=== PATIENT | male | born 1965 | race African-American/Black ===

== ENCOUNTER 2022-11-04 16:02 | Emergency (ER) | payer SELFPAY ==
--- NOTE | ~2022-11-04 | XR_ITS ---
EXAMINATION: XR CHEST CLINICAL INFORMATION: Wheezing COMPARISON: None available. TECHNIQUE: 2 views of the chest were obtained. FINDINGS: The lungs are well expanded. There is no focal consolidation, edema, or effusion. Mild bronchial wall thickening. No pneumothorax. The cardiomediastinal silhouette is within normal limits. No acute osseous abnormality. DISH. XR/XR chest 2V IMPRESSION: No consolidation. Bronchial wall thickening can be seen with a small airways process such as asthma or atypical/viral infection.
[2022-11-04 16:39] VITALS: BP 175/82; PULSE 60; RESP 20; TEMP 36.3; O2SAT 94; BMI 48.4
--- NOTE | 2022-11-04 16:39 | ED.GENADULT ---
HPI - General Adult General Chief complaint: Dizziness Stated complaint: Not feeling well Related Data Allergies Allergy/AdvReac Type Severity Reaction Status Date / Time No Known Allergies Allergy Verified 11/04/22 16:38 COUNT INCLUDES THE [facility] Social History Social History Advance Directives: No Advance Directives Information Provided: No Physical Exam ED Vital Signs: Vital Signs - 24 hr 11/04/22 16:39 11/04/22 18:29 Temperature 97.4 F Pulse Rate 60 60 Respiratory Rate 20 18 Blood Pressure 175/82 162/91 H Pulse Oximetry 94 98 Oxygen Delivery Method Room Air Room Air BMI result Body Mass Index 48.4 Course Course Course Narrative: RME - 57 y/o transgender male to female with history of PE on Coumadin, urinary incontinence, HTN, DM2, HLD, depression who presenting to the ER for evaluation of dizziness, fatigue for the last 1 week. She is wondering if INR is off, has not had it checked in a month. Feels intermittent wheezing. No SOB or SALCEDO or chest pain. Plan: EKG, lab workup Reevaluation(s) Reevaluation #1: patient eloped from the ER prior to full evaluation and treatment Medical Decision Making Lab Data 11/04/22 17:13 11/04/22 17:13 Labs: Lab Results 11/04/22 11/04/22 11/04/22 Range/Units 17:13 17:13 17:13 WBC 5.5 (4.8-10.8) X10*3/uL RBC 3.48 L (4.60-5.80) X10*6/uL Hgb 9.9 L (14.0-18.0) g/dl Hct 31.3 L (42.0-52.0) % MCV 89.9 (80.0-98.0) fL MCH 28.4 (27.0-33.0) pg MCHC 31.6 (31.0-36.0) g/dl RDW 13.6 (11.0-16.0) % Plt Count 237 (160-400) X10*3/uL MPV 10.3 (9.4-12.4) fL Immature Gran % (Auto) 0.2 (0.0-0.4) % Neut % (Auto) 60.9 (45-73) % Lymph % (Auto) 27.6 (20-40) % O'Brien % (Auto) 5.6 (2-11) % Eos % (Auto) 5.5 H (0-4) % Baso % (Auto) 0.2 (0-2) % Lymph # (Auto) 1.5 (1.2-4.9) X10*3/uL O'Brien # (Auto) 0.3 (0.1-1.2) X10*3/uL Eos # (Auto) 0.3 (0.0-0.4) X10*3/uL Baso # (Auto) 0.0 (0.0-0.2) X10*3/uL Abs Immat Gran (auto) 0.01 (0.00-0.03) X10*3/uL Absolute Neuts (auto) 3.4 (2.0-8.3) x10*3/uL Absolute Nucleated RBC 0.000 (0.0-0.012) X10*3/uL Nucleated RBC % (auto) 0.0 (0.0-0.2) /100WBC PT 21.8 H (11.1-13.3) SEC INR 1.8 H (0.9-1.1) APTT 32.3 (26.0-36.4) SEC Sodium 141 (135-145) mmol/L Potassium 4.5 (3.3-5.1) mmol/L Chloride 112 H (96-108) mmol/L Carbon Dioxide 20 L (22-29) mmol/L Anion Gap 14 (12-20) BUN 50 H (9-16) mg/dL Creatinine 4.19 H* (0.5-1.4) mg/dL Estim Creat Clear Calc 32.7 Estimated GFR 15 Random Glucose 103 (60-115) mg/dL Calcium 9.5 (8.4-10.2) mg/dL Magnesium 2.0 (1.6-2.6) mg/dL Total Bilirubin 0.3 (0.0-1.0) mg/dL Direct Bilirubin 0.1 (0.0-0.5) mg/dL AST 17 (5-37) U/L ALT 18 (0-40) U/L Alkaline Phosphatase 128 H (39-117) U/L B-Natriuretic Peptide (<100) pg/mL Total Protein 7.5 (6.5-8.0) g/dL Albumin 3.5 (3.5-5.0) g/dL 11/04/22 Range/Units 17:13 WBC (4.8-10.8) X10*3/uL RBC (4.60-5.80) X10*6/uL Hgb (14.0-18.0) g/dl Hct (42.0-52.0) % MCV (80.0-98.0) fL MCH (27.0-33.0) pg MCHC (31.0-36.0) g/dl RDW (11.0-16.0) % Plt Count (160-400) X10*3/uL MPV (9.4-12.4) fL Immature Gran % (Auto) (0.0-0.4) % Neut % (Auto) (45-73) % Lymph % (Auto) (20-40) % O'Brien % (Auto) (2-11) % Eos % (Auto) (0-4) % Baso % (Auto) (0-2) % Lymph # (Auto) (1.2-4.9) X10*3/uL O'Brien # (Auto) (0.1-1.2) X10*3/uL Eos # (Auto) (0.0-0.4) X10*3/uL Baso # (Auto) (0.0-0.2) X10*3/uL Abs Immat Gran (auto) (0.00-0.03) X10*3/uL Absolute Neuts (auto) (2.0-8.3) x10*3/uL Absolute Nucleated RBC (0.0-0.012) X10*3/uL Nucleated RBC % (auto) (0.0-0.2) /100WBC PT (11.1-13.3) SEC INR (0.9-1.1) APTT (26.0-36.4) SEC Sodium (135-145) mmol/L Potassium (3.3-5.1) mmol/L Chloride (96-108) mmol/L Carbon Dioxide (22-29) mmol/L Anion Gap (12-20) BUN (9-16) mg/dL Creatinine (0.5-1.4) mg/dL Estim Creat Clear Calc Estimated GFR Random Glucose (60-115) mg/dL Calcium (8.4-10.2) mg/dL Magnesium (1.6-2.6) mg/dL Total Bilirubin (0.0-1.0) mg/dL Direct Bilirubin (0.0-0.5) mg/dL AST (5-37) U/L ALT (0-40) U/L Alkaline Phosphatase (39-117) U/L B-Natriuretic Peptide 112 H (<100) pg/mL Total Protein (6.5-8.0) g/dL Albumin (3.5-5.0) g/dL Discharge Plan Discharge Clinical Impression: Dizziness Patient Disposition: Elopement Interventions: ED Discharge Assessment Last Done: 11/04/22 18:48 Discharge Date/Time: 11/04/22 18:48
--- NOTE | 2022-11-04 16:43 | ECG_ITS ---
Test Reason : DIZZINESS Blood Pressure : / mmHG Vent. Rate : 054 BPM Atrial Rate : 054 BPM P-R Int : 188 ms QRS Dur : 090 ms QT Int : 414 ms P-R-T Axes : 032 029 030 degrees QTc Int : 392 ms Sinus bradycardia Otherwise normal ECG No previous ECGs available Referred By: Mitra Clark Electronically Signed By:Jose Warren
[2022-11-04 17:26] LABS: MANUAL DIFF FLAG NO
[2022-11-04 17:38] LABS: Basophils Percent Auto 0.2 % (0-2); Eosinophils Absolute Auto 0.3 X10*3/uL (0.0-0.4); Eosinophils Percent Auto 5.5 % (0-4); Hematocrit 31.3 % (42.0-52.0); Hemoglobin 9.9 g/dl (14.0-18.0); Imm Gran Abs Auto 0.01 X10*3/uL (0.00-0.03); Imm Gran Pct Auto 0.2 % (0.0-0.4); Lymphocytes Absolute Auto 1.5 X10*3/uL (1.2-4.9); Lymphocytes Percent Auto 27.6 % (20-40); Mean Corpuscular HGB Conc 31.6 g/dl (31.0-36.0); Mean Corpuscular Hemoglobin 28.4 pg (27.0-33.0); Mean Corpuscular Volume 89.9 fL (80.0-98.0); Mean Platelet Volume 10.3 fL (9.4-12.4); Monocytes Absolute Auto 0.3 X10*3/uL (0.1-1.2); Monocytes Percent Auto 5.6 % (2-11); Neutrophils Absolute Auto 3.4 x10*3/uL (2.0-8.3); Neutrophils Percent Auto 60.9 % (45-73); Platelet Count 237 X10*3/uL (160-400); Red Blood Count 3.48 X10*6/uL (4.60-5.80); Red Cell Distribution Width 13.6 % (11.0-16.0); White Blood Count 5.5 X10*3/uL (4.8-10.8)
[2022-11-04 17:39] LABS: INTERNATIONAL NORM RATIO 1.8 (0.9-1.1); Prothrombin Time 21.8 SEC (11.1-13.3)
[2022-11-04 17:41] LABS: Partial Thromboplastin Time 32.3 SEC (26.0-36.4)
[2022-11-04 17:51] LABS: B Type Natriuretic Peptide 112 pg/mL (<100)
[2022-11-04 17:54] LABS: Alanine Aminotransferase 18 U/L (0-40); Albumin Level 3.5 g/dL (3.5-5.0); Alkaline Phosphatase 128 U/L (39-117); Anion Gap 14 (12-20); Aspartate Amino Transferase 17 U/L (5-37); Bilirubin Direct 0.1 mg/dL (0.0-0.5); Bilirubin Total 0.3 mg/dL (0.0-1.0); Blood Urea Nitrogen 50 mg/dL (9-16); Calcium 9.5 mg/dL (8.4-10.2); Carbon Dioxide 20 mmol/L (22-29); Chloride 112 mmol/L (96-108); Creatinine Clr Calc Pharmacy 32.7; Estimated Glomerular Filt Rate 15; Glucose Random 103 mg/dL (60-115); Potassium 4.5 mmol/L (3.3-5.1); Sodium 141 mmol/L (135-145); Total Protein 7.5 g/dL (6.5-8.0)
[2022-11-04 18:29] VITALS: BP 162/91; PULSE 60; RESP 18; O2SAT 98
== END 2022-11-04 18:48 | disposition left against medical advice (07) ==
PROVIDERS: Physician Assistant; Emergency Provider Emergency Medicine
DX: R42 Dizziness and giddiness (principal); R00.1 Bradycardia, unspecified; R06.02 Shortness of breath; Z79.899 Other long term (current) drug therapy
CPT/HCPCS: 36415; 71046; 80048; 80076; 83735; 83880; 85025; 85610; 85730; 93005; 99283

== ENCOUNTER → 2022-11-04 16:43 | Outpatient (BNV) | payer OTHER, SELFPAY | PROVIDERS: Emergency Provider Emergency Medicine; Visit Provider Internal Medicine Cardiovascular Disease | DX: R00.1 Bradycardia, unspecified (principal) | CPT/HCPCS: 93010 ==

== ENCOUNTER 2022-11-19 10:17 | Outpatient (AMB) | payer OTHER, SELFPAY ==
[2022-11-19 10:30] VITALS: BP 112/74; PULSE 78; O2SAT 98; BMI 48.1
--- NOTE | 2022-11-19 10:30 | AM.OFFWIN_ITS ---
Intake Vital Signs 11/19/22 10:30 Height 6 ft 2 in Weight 170.097 kg BMI 48.1 Intake Visit Reasons: EP, INR Intake Note: Patient here to check INR. Patient Tobacco Use Status: Never used Tobacco Allergies No Known Allergies Allergy (Verified 11/19/22 10:31) Do you need a note to return to daycare/school/sports/work: No HPI HPI Comments History of Present Illness Details 57-year-old male to female transgender presents requesting PT INR, was unable to get to [facility], requesting blood test. No medical complaints at this time. Denies fevers, chills, chest pain, shortness of breath, nausea, vomiting. Physical exam benign Plan will check INR level call patient with results. Review of Systems Const Details: Constitutional : No Weight loss, No Fever, No Chills, No Fatigue, No Malaise ENT/Mouth : No sore throat, No Rhinorrhea Eyes: No Eye Pain, No Swelling, No Redness Cardiovascular : No Chest Pain, No SOB, No Dyspnea on Exertion, No Orthopnea, No Edema, No Palpitations Respiratory : No Cough, No Sputum, No Wheezing Gastrointestinal : No Nausea, No Vomiting, No Diarrhea, No Constipation, No abdominal Pain, No Hematochezia, No Melena Genitourinary : No Dysuria, No Urinary Frequency, No Hematuria, Musculoskeletal : No joint pain, No Myalgias, No Joint Swelling Skin : No Skin Lesions, No rash Neuro : No Weakness, No Numbness, No Dizziness, No Headache All systems reviewed & are unremarkable except as noted in HPI and below Physical Exam Vital Signs: BMI result Body Mass Index 48.1 vss Appearance: Alert.? Oriented X3.? No acute distress.? Head: Normocephalic, atraumatic, no step-offs or deformities Eyes: Pupils equal, round and reactive to light.? ENT: Pharynx normal.? Neck: Normal inspection.? Neck supple.? CVS: Normal heart rate and rhythm.? Pulses normal.? Respiratory: No respiratory distress.? Breath sounds normal.? Abdomen: Soft and nontender.? Skin: Skin warm and dry.? Normal skin color.? Normal skin turgor.? Extremities: No lower extremity edema.? No calf ttp. 5/5 strength to bilateral upper and lower extremities Back: No midline tenderness, no C-spine tenderness, full range of motion, no CVA tenderness bilaterally Neuro: Oriented X 3.? No motor deficit.? No sensory deficit. 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 If you were prescribed antibiotics today, it is important that you take your medication to their entirety, do not skip any doses, do not finish them early. Follow-up with your primary care provider this week. Return to the emergency department with new or worsening symptoms. Such as fevers, chills, chest pain, shortness of breath, nausea, vomiting, dizziness, headache, vision changes, lethargy In case of emergency call 911 Orders: Orders Prothrombin Time INR Today Z79.01 - longterm (current) use of anticoagulants Coding Level of Care Code Est Pt Level 3 (37606) Diagnoses terminal makeup operator (current) use of anticoagulants Z79.01
== END 2022-11-19 11:21 | disposition home or self-care (01) ==
PROVIDERS: Visit Provider Physician Assistant
DX: Z79.01 Long term (current) use of anticoagulants (principal)
CPT/HCPCS: 99213

== ENCOUNTER 2022-11-19 10:36 | Outpatient (REF) | payer OTHER, SELFPAY ==
[2022-11-19 14:03] LABS: INTERNATIONAL NORM RATIO 1.5
== END 2022-11-19 10:37 | disposition home or self-care (01) ==
LOC: HO.HMGCLDS 10:36
PROVIDERS: Visit Provider Physician Assistant
DX: Z79.01 Long term (current) use of anticoagulants (principal)
CPT/HCPCS: 36415; 85610

== ENCOUNTER 2023-01-21 08:52 | Outpatient (AMB) | payer OTHER, SELFPAY ==
[2023-01-21 08:56] VITALS: BP 160/90; PULSE 68; O2SAT 99; BMI 33.8
--- NOTE | 2023-01-21 08:56 | MHC.PC.OV ---
Vital Signs 01/21/23 08:56 Height 6 ft 2 in Weight 263 lb BMI 33.8 BP 160/90 Blood Pressure Location Lt brachial Position Sitting Pulse 68 Pulse Source Pulse Oximeter Pulse Oximetry (%) 99 Oxygen Delivery Method Room Air Intake Visit Reasons: New patient-patient on warfarin Intake Note: Patient is a new patient here to establish care [employer]ision [employer] Bench Required: No Allergies No Known Allergies Allergy (Verified 01/21/23 09:11) Medication List - Last Reconciled 01/21/23 by SUE Vernon albuterol sulfate 90 mcg/actuation (Ventolin HFA) 1 puff inhalation QID PRN amlodipine 10 mg PO DAILY atorvastatin 40 mg PO DAILY metoprolol succinate ER 50 mg PO DAILY omeprazole 20 mg PO DAILY sertraline 100 mg PO DAILY warfarin 5 mg PO DAILY Tobacco use date assessed: 01/21/23 Dental Screening Dental Screen Date: 01/21/23 Did you have a dental visit in the last 12 months?: No Did you have a dental problem in the last 6 months where you did not have access to dental care?: No HPI HPI Comments History of Present Illness Details 57-year-old Non Binary patient (gender at male) Past medical history significant for hyperlipidemia, hypertension, GERD, depression,anxiety, type 2 DM, pulmonary embolism on senior care anticoagulation therapy with warfarin. Patient reports has not had INR checked in 1 month, previously followed by [facility] Coumadin clinic will enter new referral. Patient reports currently follows with [facility] with a therapist weekly. Refill sent on all prescriptions. Flu Shot given in office today [facility] Medical History (Updated 01/21/23 @ 09:41 by SUE Vernon) Pulmonary embolism Family History (Updated 01/21/23 @ 09:19 by SUE Vernon) Mother No problems noted. Father Kidney disease Social History (Updated 01/21/23 @ 09:19 by SUE Vernon) Alcohol intake: current Alcohol intake frequency: holidays/special occasions only Patient Tobacco Use Status: Never used Tobacco service: No Cognitive needs: No Hearing needs: No Vision needs: No Questionnaire PHQ-9 Over the last 2 weeks, how often have you been bothered by any of the following problems? 1. Little interest or pleasure in doing things: nearly every day 2. Feeling down, depressed, or hopeless: nearly every day 3. Trouble falling or staying asleep, or sleeping too much: nearly every day 4. Feeling tired or having little energy: more than half the days 5. Poor appetite or overeating: more than half the days 6. Feeling bad about yourself - or that you are a failure or have let yourself or your family down: nearly every day 7. Trouble concentrating on things, such as reading the newspaper or watching television: nearly every day 8. Moving or speaking so slowly that other people could have noticed. Or the opposite - being so fidgety or restless that you have been moving around a lot more than usual: not at all 9. Thoughts that you would be better off or of hurting yourself in some way: not at all (pt chose not to answer ) Total score: 19 Depression Screening Interpretation: Positive Depression Screening Follow-up: In treatment Depression Screening Done: Yes 66137 - PHQ-9 Billing: Yes Source: Developed by Drs. Fracisco Stubbs, Christiane Coreas, Keith Borrego and colleagues, with an educational janay from [employer]. Thrive Questionnaire Date Thrive assessed: 01/21/23 I am a: Patient What is your living situation today?: I have a steady place to live Within the past 12 months, did the food you bought not last and you didn't have the money to get more?: Never true Within the past 12 months, did you worry whether your food would run out before you got money to buy more?: Never true Do you have trouble paying for medicines?: No Do you have trouble getting transportation to medical appointments?: No Do you have trouble paying your heating and electricity bill?: No Do you have trouble taking care of your child, family member or friend?: No Do you have trouble with day-to-day activities such as bathing, preparing meals, shopping, managing finances, etc.?: No Are you currently unemployed and looking for a job?: No Are you interested in more education?: No AUDIT C Alcohol Use Questionnaire (AUDIT-C) 1. How often do you have a drink containing alcohol?: Never 3. How often do you have six or more drinks on one occasion?: Never Total Score: 0 HAYDER-7 AMB Questionnaire HAYDER-7 Date HAYDER - 7 assessed: 01/21/23 Feeling nervous, anxious, or on edge: 3 = Nearly every day Not being able to stop or control worryin = Nearly every day Worrying too much about different things: 3 = Nearly every day Trouble relaxin = Nearly every day Being so restless that it is hard to sit still: 0 = Not at all Becoming easily annoyed or irritable: 3 = Nearly every day Feeling afraid as if something awful might happen: 0 = Not at all Total HAYDER-7 score (0-4 normal; 5-9 mild; 10-14 moderate; 15-21 severe): 15 Source: Developed by Drs. Fracisoc Stubbs, Christiane Coreas, Keith Borrego and colleagues, with an educational janay from [employer]. HAYDER-7 Assessment Billing HAYDER-7 Assessment Tool: HAYDER-7 Assessment 98139 Review of Systems Const Denies chills, Denies fatigue, Denies fever(s) and Denies poor appetite Eyes Denies no additional complaints ENT Reports Normal hearing present Card Denies chest pain, Denies syncope, Denies rapid heart rate and Denies dyspnea Resp Denies cough and Denies dyspnea GI Denies change in stool character, Denies constipation, Denies diarrhea, Denies nausea and Denies vomiting Denies dysuria, Denies urinary frequency and Denies urinary urgency Denies urinary frequency, Denies dysuria and Denies urinary urgency Neuro Reports Normal hearing present, Denies confusion and Denies syncope Psych Denies confusion Endo Denies fatigue Physical exam (Primary Care) Vital Signs: Last Vital Signs Pulse 68 01/21/23 08:56 BP 160/90 01/21/23 08:56 Pulse Ox 99 01/21/23 08:56 Oxygen Delivery Method Room Air 01/21/23 08:56 BMI result Body Mass Index 33.8 Tobacco/Smoking Status: Tobacco use Status Tobacco use date assessed 01/21/23 01/21/23 09:06 Patient Tobacco Use Status Never used Tobacco 01/21/23 09:19 PHQ-9: PHQ-9 Score PHQ-9: Total score 19 01/21/23 09:21 Depression Screening Interpretation: Positive Depression Screening Follow-up: In treatment Thrive Assessment: Date of Thrive Assessment Date Thrive assessed 01/21/23 01/21/23 09:06 Const General: No confusion Orientation/consciousness: No confusion HENMT Head: Yes normocephalic and Yes atraumatic Eyes Conjunctivae: conjunctivae normal Chest Chest palpation & inspection: normal inspection of the chest Resp Effort & Inspection: normal respiratory effort Auscultation: clear to auscultation bilaterally, no crackles, no rhonchi and no wheezes Cardio Rate: regular rate Rhythm: regular rhythm Heart sounds: S1 normal heart sound present and S2 normal heart sound present GI Inspection: Yes normal to inspection Neuro General: No confusion Cranial nerves: Yes Normal hearing present Extrem General: No edema Office Procedures Flu Questionnaire Does the patient have a severe egg allergy?: No Does the patient have severe life threatening allergies?: No Does the patient have a fever or illness today?: No Has the patient ever had Guillain-Mumford Syndrome?: No Has the patient ever had any past reaction to a flu shot?: No Immunizations flu vacc [id number] 6mos up(PF) 60 mcg(15 mcgx4)/0.5 mL IM syringe Performing Provider: SUE Vernon Performing Location: [facility] Administered by: МАРИНА Hinojosa on 01/21/23 09:12 Dose Route Admin Location Dispensed Lot Number Expiration Date NDC 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 They state that hemoglobin A1c is generally are good with following diabetic diet. Hemoglobin A1c ordered. (2) Depression: Code(s): F32.A - Depression, unspecified Plan: Patient currently follows with [facility], stable on sertraline 100 mg daily. (3) Anxiety: Code(s): F41.9 - Anxiety disorder, unspecified Plan: Patient currently follows with [facility], stable on sertraline 100 mg daily. (4) GERD (gastroesophageal reflux disease): Code(s): K21.9 - Gastro-esophageal reflux disease without esophagitis Plan: Continue on omeprazole. Avoid the foods that cause that, usually spicy foods, tomato products, juices, coffee, soda and foods that you're sensitive to.? After eating do not lie down, allow 3-4 hours before lying down. And keep the head of the bed above 30 degrees to avoid the acid from going up. (5) Hyperlipidemia: Code(s): E78.5 - Hyperlipidemia, unspecified Plan: Continue on atorvastatin 40 mg daily. Avoid fried foods, chicken skin, eggs, butter,margarine, pastries and?? red meat. Fasting lipid panel ordered. (6) Hypertension: Code(s): I10 - Essential (primary) hypertension Plan: Continue on amlodipine 10 mg daily and metoprolol succinate ER 50 mg. Follow low-salt. (7) Pulmonary embolism: Comment: 2019 Code(s): I26.99 - Other pulmonary embolism without acute cor pulmonale Plan Follow-up in 3 months for physical exam. Orders: Orders Comprehensive Animas. Panel Fast Today E11.9 - Type 2 diabetes mellitus without complications Lipid Panel Today Z13.220 - Encounter for screening for lipoid disorders PSA,Total (Free>4and<10) Today Z12.5 - Encounter for screening for malignant neoplasm of prostate Influenza [id number] Immunization Today Z23 - Encounter for immunization Complete Blood Count Auto Diff Today Z13.0 - Encounter for screening for diseases of the blood and blood-forming organs and certain disorders involving the immune mechanism Prothrombin Time INR Today Z79.01 - [facility] (current) use of anticoagulants Hemoglobin A1c Today E11.9 - Type 2 diabetes mellitus without complications Referrals Anticoagulation Service/Clinic I26.99 - Other pulmonary embolism without acute cor pulmonale Medications: New amlodipine 10 mg PO DAILY 30 tabs 3RF metoprolol succinate ER 50 mg PO DAILY 30 tabs 3RF omeprazole 20 mg PO DAILY 30 caps 3RF warfarin 5 mg PO DAILY 30 tabs 3RF diclofenac sodium 1% (Arthritis Pain (diclofenac)) apply to single elbow, wrist or hand; for hand includes palm/fingers/back of hand 2 grams topical QID 100 grams 0RF sertraline 100 mg PO DAILY 30 tabs 3RF Coding Level of Care Code New Pt Level 4 (95152) Diagnoses Type 2 diabetes mellitus E11.9 Depression F32.A Anxiety F41.9 GERD (gastroesophageal reflux disease) K21.9 Hyperlipidemia E78.5 Hypertension I10 Pulmonary embolism I26.99 Additional Codes HAYDER-7 Assessment Billing - HAYDER-7 Assessment Tool: HAYDER-7 Assessment 87324 ([id number])
== END 2023-01-21 09:28 | disposition home or self-care (01) ==
LOC: HO.HMGH 08:52
PROVIDERS: PCP Nurse Practitioner Family; Visit Provider Nurse Practitioner Family
DX: Z23 Encounter for immunization (principal); E11.9 Type 2 diabetes mellitus without complications; F33.9 Major depressive disorder, recurrent, unspecified; I26.99 Other pulmonary embolism without acute cor pulmonale
CPT/HCPCS: 90471; 90686; 96127; 99204

== ENCOUNTER 2023-01-21 09:40 | Outpatient (REF) | payer OTHER, SELFPAY ==
[2023-01-21 09:54] LABS: MANUAL DIFF FLAG NO
[2023-01-21 10:55] LABS: Basophils Percent Auto 0.3 %; Eosinophils Absolute Auto 0.2 X10*3/uL; Eosinophils Percent Auto 2.8 %; Hemoglobin 10.3 g/dl; Imm Gran Abs Auto 0.01 X10*3/uL (0.00-0.03); Imm Gran Pct Auto 0.2 % (0.0-0.4); Lymphocytes Absolute Auto 2.4 X10*3/uL; Lymphocytes Percent Auto 39.5 %; Mean Corpuscular HGB Conc 31.2 g/dl; Mean Corpuscular Hemoglobin 28.9 pg; Mean Corpuscular Volume 92.4 fL; Mean Platelet Volume 10.5 fL (9.4-12.4); Monocytes Absolute Auto 0.4 X10*3/uL; Monocytes Percent Auto 6.1 %; Neutrophils Absolute Auto 3.1 x10*3/uL; Neutrophils Percent Auto 51.1 %; Platelet Count 296 X10*3/uL; Red Blood Count 3.57 X10*6/uL; Red Cell Distribution Width 13.9 % (11.0-16.0)
[2023-01-21 11:01] LABS: INTERNATIONAL NORM RATIO 1.8; Prothrombin Time 21.4 SEC
[2023-01-21 11:03] LABS: Estimated Average Glucose 120 mg/dL; Hemoglobin A1c % 5.8 %
[2023-01-21 11:40] LABS: PSA,Total (Free>4and<10) 0.37 ng/mL
[2023-01-21 11:41] LABS: Alanine Aminotransferase 19 U/L; Albumin Level 3.9 g/dL; Alkaline Phosphatase 139 U/L; Anion Gap 16; Aspartate Amino Transferase 16 U/L; Bilirubin Total 0.2 mg/dL; Blood Urea Nitrogen 39 mg/dL; Calcium 9.5 mg/dL; Carbon Dioxide 22 mmol/L; Chloride 113 mmol/L; Cholesterol 230 mg/dL; Estimated Glomerular Filt Rate 15; Glucose Fasting 113 mg/dL; HDL Cholesterol 38 mg/dL; LDL Cholesterol Calculated 133 mg/dL; Potassium 4.5 mmol/L; Sodium 146 mmol/L; Total Protein 8.5 g/dL; Triglycerides 298 mg/dL
== END 2023-01-21 09:41 | disposition home or self-care (01) ==
LOC: HO.LAB 09:40
PROVIDERS: Visit Provider Nurse Practitioner Family
DX: E11.9 Type 2 diabetes mellitus without complications (principal); Z13.220 Encounter for screening for lipoid disorders; Z13.0 Encounter for screening for diseases of the blood and blood-forming organs and certain disorders involving the immune mechanism; Z79.01 Long term (current) use of anticoagulants; Z12.5 Encounter for screening for malignant neoplasm of prostate
CPT/HCPCS: 36415; 80053; 80061; 83036; 84153; 85025; 85610

== ENCOUNTER 2023-02-08 13:28 | Outpatient (AMB) | payer OTHER, SELFPAY ==
--- NOTE | 2023-02-08 13:56 | MHC.OFFVISCO ---
Intake Intake Visit Reasons: Anticoagulation Die Maker Electronic Required: No Allergies No Known Allergies Allergy (Verified 02/08/23 13:36) Medication List - Last Reconciled 02/08/23 by Mayra Quintana RN albuterol sulfate 90 mcg/actuation (Ventolin HFA) 1 puff inhalation QID PRN amlodipine 10 mg PO DAILY atorvastatin 40 mg PO DAILY diclofenac sodium 1% (Arthritis Pain (diclofenac)) 2 grams topical QID metoprolol succinate ER 50 mg PO DAILY omeprazole 20 mg PO DAILY sertraline 100 mg PO DAILY warfarin 5 mg PO DAILY Is last menstrual period known: No Post menopausal: No Patient : No Nursing Note INR 3.2-? out of therapeutic range of 2-3 Medications and supplements reviewed with pt. also taking multivitamin gummies- 2 daily Patient status: pt admitted to acs today - pt states has been on warfarin for approx 2 years for pulmonary emboli last inr check was 01/21/23- was 1.8 and pt stated was instructed to take 7.5mg sat and sun. pt usual dosing is 5mg daily Medications or supplements: reviewed Diet: appetite is good, pt states recent weight loss Denies any signs and symptoms of bleeding or clotting or unusual bruising Bleeding, bruising, clotting discussed Nutritional guidance given: dietary management discussed with pt, handouts given to pt and reviewed pt states able to eat greens to lower inr, no reds for 2-3 days Dose: 5mg x 7 F/U INR Date : wednesday02/12/23? Patient verbalizing understanding of instructions given. pmh and med list reviewed. educational material provided to pt and reviewed- including purpose of warfarin, s/s bleeding and clotting. pt demonstrates fgood understanding but will require review of material. no show and pt agreement reviewed and signed by pt. pt may require transportation assistance- [place] [facility] [place] Anti-Coag Initial Assessment Social Hx Patient Tobacco Use Status: Never used Tobacco alcohol intake: current Alcohol intake frequency: holidays/special occasions only Housing: Apartment current occupation: nursing- shuttle route vehicle operator current occupational exposures/hazards: No Fall risk assessment: 1 Fall in past year Cardiovascular Hx: HTN Lung Disease HX: DVT/PE Endocrine Hx: Diabetes Musculoskeletal Hx: Arthritis (bilat knees, bilat hips) Blood Disorder Hx: Hyperlipidemia GI Hx: Bleeding (GI, rectal) (URINE) and Other (GERD) Hx: Kidney Disease and Other (URINARY INCONT) Cancer HX: No Psych. Illness/Depression: Yes (anxiety and depression- has a counselor) Is last menstrual period known: No Post menopausal: No Patient : No Surgeries: tonsillectomy Anti-Coag. Education Record Teaching Recipient: Patient What is the easiest way to learn: Reading, Listening, Demonstration and Education Packet Barriers to Learning Identified: Physical (arthritis) Physical: Mobility and Pain List any additional concerns (family/financial etc.): transportation- diff driving, landlord attempting to remove his pets Significant other who can be involved in Teaching Process when Indicated: pt states none If Barriers are identified, describe method to overcome: [facility] [place] Die Maker Electronic Required: No Readiness To Learn: Good Teaching Methods: Demonstration, Discussion and Handout Response to Teaching: Reinforcement Needed Re-Education needs: Reinforce Content and Re-Teach Education Intervention/Brief Description of Teaching 1. Able to state reason for taking Warfarin: Yes 2. Able to state Pain Management techniques: Yes 3. Able to state action of Warfarin.: Yes Able to state current dose, pill color, how and when Warfarin to be taken: Yes Able to identify signs of bleeding &/or clotting: Yes 4. Able to identify need to keep diet consistent in regard to vitamin K intake: Yes Able to state restriction on alcohol: Yes 5. Able to state need for compliance with PT/INR testing: Yes Describes rationale for carrying ID and wearing Medic Alert bracelet: Yes Patient instructed to monitor for excess bruising or signs/symptoms of clotting or bleeding: Yes 6. Able to state that there are drugs that interact with Warfin: Yes 7. Able to state the need to seek medical attention when illness/injury occur.: Yes Describes the need to avoid activities with high risk of injury: Yes 8. Able to state duration of treatment: Yes 9. Demonstrates understanding of notifying all providers of pending dental surgical, or other invasive procedures: Yes 10. Able to state Home Care instructions Questionnaires HAS-BLED Does the patient had uncontrolled Hypertension?: No Does the patient have renal disease?: Yes Does the patient have liver disease?: No Does the patient have a history of stroke?: No Has the patient had major bleeding or predisposition to bleeding?: Yes Does the patient have labile INRs?: Yes Is the patient over 65 years of age?: No Is the patient on medications that gives them a predisposition to bleeding?: Yes Does the patient use alcohol?: Yes HAS-BLED Score: 5 CHADSVASC Age: <65 Gender: Male Does the patient have a history of CHF?: No Does the patient have a history of Hypertension?: Yes Does the patient have a history of Stroke/TIA/Thromboembolism?: No Does the patient have a history of Vascular Disease (prior AL, PAD or aortic plaque)?: No Does the patient have a history of Diabetes?: Yes CHADS VACS Score: 2 Sondra Prediction Score Rsk VTE Active Cancer: No Previous VTE, excluding superficial vein thrombosis: Yes Reduced mobility: Yes Already known Thrombophilic Condition: No With-in last month Trauma and/or Surgery: No Elderly 70 year or older: No Heart and/or Respiratory Failure: No Acute Myocardial infarction and/or Ischemic Stroke: No Acute Infection and/or Rheumatologic Disorder: No Obesity (BMI 30 or greater): Yes Ongoing Hormonal Treatment: No Score: 7 Sondra Score less than 4; Low Risk of VTE Sondra Score 4 or greater; High Risk of VTE Coding Level of Care Code New Patient Level 2 Diagnoses Current use of anticoagulant therapy Z79.01 Results AMB INR Fingerstick AMB INR Fingerstick 3.2 Last Edit by Mayra Quintana RN on 02/08/23 14:22 Assessment & Plan Assessment & Plan (1) Current use of anticoagulant therapy: Code(s): Z79.01 - [facility] (current) use of anticoagulants Category: Medical Medications: New [multivitamin gummy] PO DAILY
[2023-02-11 13:33] LABS: Prothrombin Time Whole Bld POC 38.4 sec; ~PT, ~INR - Anti Coag Clinic 3.2
== END 2023-02-08 15:01 | disposition home or self-care (01) ==
LOC: HO.ACS 13:28
PROVIDERS: PCP Nurse Practitioner Family; Visit Provider Internal Medicine
DX: Z79.01 Long term (current) use of anticoagulants (principal)

== ENCOUNTER → 2023-02-08 13:28 | Outpatient (BNVA) | payer OTHER, SELFPAY | PROVIDERS: PCP Nurse Practitioner Family; Visit Provider Internal Medicine | DX: I26.99 Other pulmonary embolism without acute cor pulmonale (principal); Z79.01 Long term (current) use of anticoagulants; Z51.81 Encounter for therapeutic drug level monitoring | CPT/HCPCS: 85610; 99202 ==

== ENCOUNTER 2023-02-12 13:14 | Outpatient (AMB) | payer OTHER, SELFPAY ==
[2023-02-12 13:50] LABS: Prothrombin Time Whole Bld POC 35.6 sec
--- NOTE | 2023-02-12 13:58 | MHC.OFFVISCO ---
Intake Intake Visit Reasons: Anticoagulation Allergies No Known Allergies Allergy (Verified 02/12/23 13:43) Medication List - Last Reconciled 02/12/23 by Claudia Callaway, RN albuterol sulfate 90 mcg/actuation (Ventolin HFA) 1 puff inhalation QID PRN amlodipine 10 mg PO DAILY atorvastatin 40 mg PO DAILY diclofenac sodium 1% (Arthritis Pain (diclofenac)) 2 grams topical QID metoprolol succinate ER 50 mg PO DAILY [multivitamin gummy PO DAILY] omeprazole 20 mg PO DAILY sertraline 100 mg PO DAILY warfarin 5 mg See Protocol PO DAILY Nursing Note Amb to ACS feeling well for ACS visit #2 Medications and supplements reviewed No changes in health, diet, medications, or supplements Denies any unusual signs and symptoms of bruising, bleeding Denies any new Chest pain, SOB, or clotting INR: 3.0 in therapeutic range Nutritional guidance given: balance greens and reds in diet, be consistent Dose: continue usual dosing;5mg daily F/U INR: 5 days Patient verbalizes understanding of instructions given with accurate read back/ teach back of dosing Anti-Coag Initial Assessment Social Hx Patient Tobacco Use Status: Never used Tobacco alcohol intake: current Alcohol intake frequency: holidays/special occasions only Cardiovascular Hx: HTN Lung Disease HX: DVT/PE Endocrine Hx: Diabetes Musculoskeletal Hx: Arthritis (bilat knees, bilat hips) Blood Disorder Hx: Hyperlipidemia GI Hx: Bleeding (GI, rectal) (URINE) and Other (GERD) Hx: Kidney Disease and Other (URINARY INCONT) Cancer HX: No Psych. Illness/Depression: Yes (anxiety and depression- has a counselor) Coding Level of Care Code Est Patient Level 1 Diagnoses Current use of anticoagulant therapy Z79.01 Time Spent (min) 15 Assessment & Plan Assessment & Plan (1) Current use of anticoagulant therapy: Code(s): Z79.01 - longterm (current) use of anticoagulants Category: Medical
== END 2023-02-12 14:05 | disposition home or self-care (01) ==
LOC: HO.ACS 13:14
PROVIDERS: PCP Nurse Practitioner Family; Visit Provider Internal Medicine
DX: Z79.01 Long term (current) use of anticoagulants (principal)

== ENCOUNTER → 2023-02-12 13:14 | Outpatient (BNVA) | payer OTHER, SELFPAY | PROVIDERS: PCP Nurse Practitioner Family; Visit Provider Internal Medicine | DX: I26.99 Other pulmonary embolism without acute cor pulmonale (principal); Z79.01 Long term (current) use of anticoagulants; Z51.81 Encounter for therapeutic drug level monitoring | CPT/HCPCS: 85610; 99211 ==

== ENCOUNTER 2023-02-23 11:13 | Outpatient (AMB) | payer OTHER, SELFPAY ==
--- NOTE | 2023-02-23 11:14 | MHC.OFFVIS ---
Intake Vital Signs 02/23/23 11:15 Height 6 ft 2 in Weight 365 lb 8 oz BMI 46.9 BP 146/84 Blood Pressure Location Lt brachial Position Sitting Pulse 60 Pulse Source Pulse Oximeter Pulse Oximetry (%) 97 Oxygen Delivery Method Room Air Intake Visit Reasons: CKD Intake Note: Pt will like to take cortisone shots on knee and lower back. 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 Referred for evaluation CKD. Jamil has history of CKD. Serum creatinine was 2.2 back in 2020. In October of 2022 serum creatinine was 4.0. As of December creatinine was 4.1. Jamil has nephrotic range proteinuria with a recent protein creatinine ratio of 2990. Jamil has a history of obesity. Previous weight was 393 lb. Current weight is around 363 lb. [facility] Medical History Pulmonary embolism Family History Mother No problems noted. Father Kidney disease Social History Housing: Apartment Alcohol intake: current Alcohol intake frequency: holidays/special occasions only Patient Tobacco Use Status: Never used Tobacco service: No Current occupation: nursing- extruder operator Current occupational exposures/hazards: No Cognitive needs: No Hearing needs: No Vision needs: No Review of Systems Const Denies anorexia and Denies fever(s) Eyes Denies blurry vision Card Denies no additional complaints and Denies dyspnea Resp Reports no additional complaints, Reports cough and Denies dyspnea GI Denies melena and Denies diarrhea Denies hematuria Denies hematuria Musc Denies tingling Skin/Breast Denies rash Neuro Denies focal weakness, Denies tingling and Denies tremor(s) Physical Exam Vital Signs: Last Vital Signs Pulse 60 02/23/23 11:15 BP 146/84 02/23/23 11:15 Pulse Ox 97 02/23/23 11:15 Oxygen Delivery Method Room Air 02/23/23 11:15 BMI result Body Mass Index 46.9 Const General: comfortable Nutritional Appearance: well nourished and obese Orientation/consciousness: patient oriented x3 HEENT Head: No normal to inspection Mouth: moist mucous membranes Neck Neck: Yes supple and Yes no JVD Resp Auscultation: clear to auscultation bilaterally and no rales Cardio Jugular venous distension: no JVD Palpation: no palpable S3 and no palpable S4 Heart sounds: no rubs GI Palpation (GI): Soft to palpation and nontender Percussion: No Fluid wave present General: Yes no CVA tenderness Back/Spine/Pelvis Back: no CVA tenderness Skin General skin exam: no rashes or lesions noted Neuro General: patient oriented x3 Extrem General: Yes no pedal edema and No clubbing Results Reviewed Results Reviewed: Hemoglobin 10.3 BUN 39 creatinine 4.1. Serum electrolytes normal. Assessment & Plan Assessment & Plan (1) CKD (chronic kidney disease): Code(s): N18.9 - Chronic kidney disease, unspecified (2) Type 2 diabetes mellitus: Code(s): E11.9 - Type 2 diabetes mellitus without complications (3) Pulmonary embolism: Comment: 2020 Code(s): I26.99 - Other pulmonary embolism without acute cor pulmonale (4) Hypertension: Code(s): I10 - Essential (primary) hypertension (5) Anemia: Code(s): D64.9 - Anemia, unspecified Plan Jamil has advanced CKD in a setting of proteinuria Differential diagnosis includes diabetic nephropathy. Other nondiabetic causes should be considered. With a history of obesity she could very well have FSGS. Other glomerulo nephritis seems unlikely given the chronicity of the kidney disease and the rate of increasing serum creatinine. Obstructive uropathy is less likely but nevertheless needs to be ruled out. Jamil has advanced renal failure approaching end stage renal disease. At present there is no overt signs or symptoms of uremia or fluid overload. Discussed the need for renal replacement therapy in the near future if the GFR continues to decline. Anemia most likely due to erythropoietin deficiency in a setting of CKD. Check iron stores and re-evaluate for erythropoietin replacement therapy. Blood pressure is suboptimal Recommendation would include Optimizing blood sugar to maintain A1c of less than 7%. Optimizing blood pressure to less than 130/80. Continue to avoid nephrotoxic agents including NSAIDs. Add low-dose of losartan 25 mg for both renal protection and optimizing blood pressure. Jamil will benefit from SGLT 2 inhibitor. Given the history of fatigue and snoring, obstructive sleep apnea needs to be ruled out. Discussed importance of weight loss in slowing the progression of kidney disease. All questions were answered. Orders: Orders Blood Urea Nitrogen Today N18.9 - Chronic kidney disease, unspecified Total Protein Urine Random Today N18.9 - Chronic kidney disease, unspecified Creatinine Urine Today N18.9 - Chronic kidney disease, unspecified Electrolytes Today N18.9 - Chronic kidney disease, unspecified Creatinine Today N18.9 - Chronic kidney disease, unspecified Calcium Today N18.9 - Chronic kidney disease, unspecified Complete Blood Count no Diff Today N18.9 - Chronic kidney disease, unspecified IRON PROFILE Today N18.9 - Chronic kidney disease, unspecified Ferritin Today N18.9 - Chronic kidney disease, unspecified Parathyroid Hormone Intact Today N18.9 - Chronic kidney disease, unspecified US renal BI Today N18.9 - Chronic kidney disease, unspecified Medications: New losartan 25 mg PO DAILY 30 tabs 1RF Coding Level of Care Code New Pt Level 5 (18699) Diagnoses CKD (chronic kidney disease) N18.9 Type 2 diabetes mellitus E11.9 Pulmonary embolism I26.99 Hypertension I10 Anemia D64.9
[2023-02-23 11:15] VITALS: BP 146/84; PULSE 60; O2SAT 97; BMI 46.9
== END 2023-02-23 11:42 | disposition home or self-care (01) ==
LOC: HO.HKA 11:13
PROVIDERS: PCP Nurse Practitioner Family; Visit Provider Internal Medicine Hypertension Specialist
DX: E11.22 Type 2 diabetes mellitus with diabetic chronic kidney disease (principal); N18.4 Chronic kidney disease, stage 4 (severe); I26.99 Other pulmonary embolism without acute cor pulmonale; I12.9 Hypertensive chronic kidney disease with stage 1 through stage 4 chronic kidney disease, or unspecified chronic kidney disease; D63.1 Anemia in chronic kidney disease
CPT/HCPCS: 99205

== ENCOUNTER → 2023-02-23 11:13 | Outpatient (BNVA) | payer OTHER, SELFPAY | PROVIDERS: PCP Nurse Practitioner Family; Visit Provider Internal Medicine Hypertension Specialist | DX: E11.22 Type 2 diabetes mellitus with diabetic chronic kidney disease (principal); I12.9 Hypertensive chronic kidney disease with stage 1 through stage 4 chronic kidney disease, or unspecified chronic kidney disease; N18.9 Chronic kidney disease, unspecified; D64.9 Anemia, unspecified; I26.99 Other pulmonary embolism without acute cor pulmonale; Z79.01 Long term (current) use of anticoagulants; Z51.81 Encounter for therapeutic drug level monitoring | CPT/HCPCS: 85610; 99202; 99211 ==

== ENCOUNTER 2023-02-23 13:07 | Outpatient (AMB) | payer OTHER, SELFPAY ==
[2023-02-23 13:12] LABS: Prothrombin Time Whole Bld POC 51.9 sec; ~PT, ~INR - Anti Coag Clinic 4.3
--- NOTE | 2023-02-23 13:27 | MHC.OFFVISCO ---
Intake Intake Visit Reasons: Anticoagulation Allergies No Known Allergies Allergy (Verified 02/23/23 13:07) Medication List - Last Reconciled 02/23/23 by Isela Garcia RN albuterol sulfate 90 mcg/actuation (Ventolin HFA) 1 puff inhalation QID PRN amlodipine 10 mg PO DAILY atorvastatin 40 mg PO DAILY diclofenac sodium 1% (Arthritis Pain (diclofenac)) 2 grams topical QID losartan 25 mg PO DAILY metoprolol succinate ER 50 mg PO DAILY [multivitamin gummy PO DAILY] omeprazole 20 mg PO DAILY sertraline 100 mg PO DAILY warfarin 5 mg See Protocol PO DAILY Nursing Note c/o of knee and back pain works as a [employer] M[employer]ER - may need injectiosn for pain - gave number to pain clinic vINR 4.3 ?? out of therapeutic range Medications and supplements reviewed Patient status: s/p thanksgiving had several foods that raise the INR medications or supplements: no changes Diet: good Denies any signs and symptoms of bleeding or clotting or unusual bruising Bleeding, bruising, clotting discussed Nutritional guidance given: greens today Dose: hold today then decrease weekly dose 2.5mg x 1 day/ 5mg x 6 days F/U INR Date: 02/26/23 due to large increase in INR and dereased renal function ?? Patient verbalizing understanding of instructions given. Anti-Coag Initial Assessment Social Hx Patient Tobacco Use Status: Never used Tobacco alcohol intake: current Alcohol intake frequency: holidays/special occasions only Cardiovascular Hx: HTN Lung Disease HX: DVT/PE Endocrine Hx: Diabetes Musculoskeletal Hx: Arthritis (bilat knees, bilat hips) Blood Disorder Hx: Hyperlipidemia GI Hx: Bleeding (GI, rectal) (URINE) and Other (GERD) Hx: Kidney Disease and Other (URINARY INCONT) Cancer HX: No Psych. Illness/Depression: Yes (anxiety and depression- has a counselor) Coding Level of Care Code Est Patient Level 1 Results AMB INR Fingerstick AMB INR Fingerstick 4.3 Last Edit by Isela Garcia RN on 02/23/23 13:18 manual entry
== END 2023-02-23 13:31 | disposition home or self-care (01) ==
LOC: HO.ACS 13:07
PROVIDERS: PCP Nurse Practitioner Family; Visit Provider Internal Medicine
DX: Z79.01 Long term (current) use of anticoagulants (principal)